=== PATIENT | male | born 1995 | race Native Hawaiian/Other Pacific Islander ===

== ENCOUNTER 2017-12-24 17:27 | Inpatient (IN) | payer OTHER, MEDICAID ==
--- NOTE | 2017-12-24 18:23 | RAD ---
HISTORY: PES COMPARISON: No prior. FINDINGS: LUNGS: The lungs are well inflated and clear. PLEURA: No significant pleural effusion identified, no pneumothorax apparent. CARDIOVASCULAR: Normal. OSSEOUS STRUCTURES: No significant abnormalities. VISUALIZED UPPER ABDOMEN: Normal. OTHER FINDINGS: There is a right ventriculoperitoneal shunt catheter. IMPRESSION: No active pulmonary disease.
[2017-12-24 18:28] LABS: BASO # 0.04 K/mm3 (0.0-2.0); BASO % 0.4 % (0.0-3.0); EOS # 0.1 (0.0-0.7); EOS % 1.1 % (1.5-5.0); GRAN # 7.32 (1.4-6.5); GRAN % 67.7 % (50.0-68.0); HEMOGLOBIN 17.4 g/dL (14.0-18.0); LYMPH # 2.6 (1.2-3.4); MEAN CELL VOLUME 87.3 fl (80.0-105.0); MEAN CORPUSCULAR HEMOGLOBIN 30.7 pg (25.0-35.0); MEAN CORPUSCULAR HGB CONC 35.2 g/dl (31.0-37.0); MEAN PLATELET VOLUME 11.4 fl (7.0-11.0); MONO # 0.7 (0.1-0.6); MONO % 6.8 % (1.0-6.0); RBC 5.67 10^6/uL (3.5-6.1); RED CELL DISTRIBUTION WIDTH 12.1 % (11.5-14.5); WHITE BLOOD COUNT 10.8 10^3/ul (4.5-11.0)
[2017-12-24 18:37] LABS: ACETAMINOPHEN < 10.0 ug/ml (10.0-20.0); SALICYLATE < 1 mg/dL (2.0-20.0)
[2017-12-24 18:39] LABS: ALB/GLOB RATIO 1.4 (1.1-1.8); ALBUMIN 4.9 g/dL (3.0-4.8); ALT/SGPT 39 U/L (7-56); AST/SGOT 32 U/L (17-59); BLOOD UREA NITROGEN 16 mg/dL (7-21); CALCIUM 10.6 mg/dL (8.4-10.5); GFR AFRICAN-AMERICAN > 60; GFR NON-AFRICAN AMERICAN > 60
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
[2017-12-24 20:19] LABS: URINE BILIRUBIN NEGATIVE (NEGATIVE); URINE BLOOD NEGATIVE (NEGATIVE); URINE GLUCOSE (UA) NEGATIVE (NEGATIVE); URINE LEUKOCYTE ESTERASE NEGATIVE Leu/uL (NEGATIVE); URINE PROTEIN NEGATIVE mg/dL (<30 mg/dL); URINE UROBILINOGEN 0.2 E.U./dL (<1 E.U./dL)
[2017-12-24 20:21] LABS: URINE APPEARANCE CLEAR (CLEAR); URINE COLOR LIGHT YELLOW (YELLOW)
[2017-12-24 20:35] LABS: BARBITURATES, UR NEGATIVE (NEGATIVE); BENZODIAZEPINES, UR NEGATIVE (NEGATIVE); OPIATES, UR NEGATIVE (NEGATIVE); PHENCYCLIDINE, UR NEGATIVE (NEGATIVE)
[2017-12-24 23:42] VITALS: RESP 20
--- NOTE | 2017-12-25 00:40 | PCM.BM ---
<Christopher Patterson - Last Filed: 12/25/17 00:36> Treatment Plan Problems - Problems identified on initial assessmt ALTERED THOUGHT PROCESS Date Initiated: 12/24/17 Time Initiated: 22:00 Assessment reference: NA Status: Active Priority: 1 INEFFECTIVE COPING Date Initiated: 12/24/17 Time Initiated: 22:00 Assessment reference: NA Status: Active Priority: 2 AGITATED BEHAVIOR Date Initiated: 12/24/17 Time Initiated: 22:00 Assessment reference: NA Status: Active Priority: 3 MEDICATION NON ADHERENCE Date Initiated: 12/24/17 Time Initiated: 22:00 Assessment reference: NA Status: Active Priority: 4 Treatment assets and liabiliti Patient Assests: adapts well, cooperative, educated, self-reliant, ADL independent, physically healthy, negotiates basic needs, cognitively intact Patient Liabilities: financial problems, poor support system, relationship conflicts, other - Milieu Protocol Maintain good personal hygiene: daily Encourage regular showers, every shift Remind patient to perform daily oral care, every shift Assist patient to perform ADL's Maintain personal safety: every shift Educate patient to report safety concerns to staff, every shift Monitor environment for contraband/sharps Medication safety: Monitor for expected outcome, potential side effects: every shift, Assess barriers to learning: every shift, Assess readiness for medication education: every shift Family Contact Family involvement: Family/SO is involved Family contact: Patient agrees to contact Discharge/Continuing Care - Education Needs Education Needs: Patient Medication, Patient Diagnosis/Disease Process, Patient Coping Skills, Patient Anger Management skills, Patient Placement options, Patient Community resources, Patient Health Practices/Safety, Patient Personal Hygiene/Grooming - Discharge Discharge Criteria: Tolerates medication w/o severe side effects, Free of paranoid thoughts, Free of agitation, Normal sleep pattern <Lisa Hirsch - Last Filed: 12/25/17 14:15> - Diagnosis (1) Unspecified psychosis not due to a substance or known physiological condition Status: Acute Interventions: 12/25/17 14:16 Psychoeducation supportive therapy Psychopharmacology/adjustment of medications as needed/ monitoring possible side effects Evaluate pt on daily basis Compliance with medications and follow up appointments Long acting medication if pt is noncompliant with pill form Suicide and homicide risk assessment and prevention, coping strategies, safety plan Relapse prevention Reduction of symptoms Improve functional status Possible assertive community treatment Cognitive behavioral therapy Family involvement Possible social skill training as outpatient <Kenia Heard Y - Last Filed: 12/25/17 15:23> Family Contact Family contact name: Zainab Kelly(mother) [phone] Family contacted how many times per week?: 2
[2017-12-25 08:22] LABS: GLUCOSE,FASTING 94 mg/dL (65-110); HDL CHOLESTEROL 51 mg/dL (29-60)
[2017-12-25 08:32] LABS: LDL CHOLESTEROL 73 mg/dL (0-129)
--- NOTE | 2017-12-25 09:11 | CT ---
PROCEDURE: CT HEAD WITHOUT CONTRAST. HISTORY: headache x 3 days COMPARISON: None available. TECHNIQUE: Axial computed tomography images were obtained through the head/brain without intravenous contrast. Radiation dose: Total exam DLP = 920 mGy-cm. This CT exam was performed using one or more of the following dose reduction techniques: Automated exposure control, adjustment of the mA and/or kV according to patient size, and/or use of iterative reconstruction technique. FINDINGS: HEMORRHAGE: No intracranial hemorrhage. BRAIN: No mass effect or edema. No atrophy or chronic microvascular ischemic changes. There is calcification of the falx and tentorium VENTRICLES: Unremarkable. No hydrocephalus. CALVARIUM: There is a right parietal shunt catheter extending 11 mm into the right parietal lobe. A shunt tract can be seen extending to the right lateral ventricle. This is best seen on sagittal image 35 series 602 PARANASAL SINUSES: Unremarkable as visualized. No significant inflammatory changes. MASTOID AIR CELLS: Unremarkable as visualized. No inflammatory changes. OTHER FINDINGS: The report concurs with the preliminary [facility] report IMPRESSION: No acute intracranial findings
--- NOTE | 2017-12-25 11:26 | CARD ---
APPROVED REPORT EKG Measurement Heart [id number] <Conclusion> Normal sinus rhythm Normal ECG
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
--- NOTE | 2017-12-26 01:16 | CON ---
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 PAST MEDICAL HISTORY: As above. ALLERGIES: NO KNOWN DRUG ALLERGY. REVIEW OF SYSTEMS: Ten-point review of system was negative except paranoid. PHYSICAL EXAMINATION: VITAL SIGNS: Blood pressure 121/66. HEENT: Normocephalic, atraumatic. NECK: Supple. NEUROLOGIC: Alert, awake, oriented x3. No aphasia. Cranial nerves II through XII were tested. Pupils reactive. EOM intact. Visual rose full. No facial asymmetry. Tongue midline. Motor examination, moves all the extremities equally. Tone normal. Deep tendon reflexes 1+. Both plantars are downgoing. Sensory appears intact. Cerebellar and gait, normal. DIAGNOSTIC DATA: CAT scan of the head, which did not show any pathology. LABORATORY DATA: WBC 10.8, hemoglobin 17.4, hematocrit 49.5 and platelet 172. Sodium 144, potassium 3.6, chloride 100, CO2 of 13, glucose 85, BUN 16, creatinine 0.9. IMPRESSION: 1. Status post surgery, status post craniotomy partial with ventriculoperitoneal shunt. 2. Anxiety. PLAN: Continue present management. We will follow up. Fady Lawson MD
--- NOTE | 2017-12-26 13:11 | CON ---
DATE: MEDICAL CONSULT HISTORY OF PRESENT ILLNESS: A 22-year-old male admitted through [facility] to the Psychiatric Unit at [facility] under the care of Dr. Gary Chapman. Patient states that he has been feeling a bit tense, anxious and paranoid. He states that he has a history of medulloblastoma, status post craniotomy and [employer]IFIC[employer] INTELLIGENCE SPECIALIST shunt in 07/1996. He has a history of depression and anxiety. States that he had been off his medications. He goes to the school as a student. PAST MEDICAL HISTORY: He denies any history of diabetes, hypertension, hepatitis, pulmonary or lung disease, cardiac disease, GI disease, any sort of rheumatologic disorders. He states that he has not seen a neurologist for a number of years. He was being followed at [facility] for over 10 years and has been cleared by them. He denies any symptomatology related to that at this time. ALLERGIES: HE HAS NO KNOWN ALLERGIES. SOCIAL HISTORY: He denies any use of drugs, smoking or alcohol. MEDICATIONS: His active medications are Ambien, Ativan, Cogentin, Haldol and Seroquel. REVIEW OF SYSTEMS: Multiple systems are noted. There is a scar on his anterior left chest area secondary to surgery for his shunt. PHYSICAL EXAMINATION GENERAL: He is alert and oriented x3. VITAL SIGNS: Show a temperature of 97.9, his blood pressure is 125/74, respiratory rate is 20, oxygen saturation is reported 99% on room air. LUNGS: Clear. HEART: Is in S1, S2 rhythm. ABDOMEN: Soft with positive bowel sounds. EXTREMITIES: Show no evidence of rash or edema. DIAGNOSTIC DATA: His EKG is reported as showing a normal sinus rhythm. His chest x-ray is showing no evidence of active pulmonary disease. His CAT scan of his head have been reported as no acute intracranial findings. There is a right parietal shunt catheter in the right parietal lobe extending into the right lateral ventricle. Calcifications of the falx and tentorium are reported. LABORATORY DATA: Shows a sodium of 144, potassium 3.6, chloride 100, BUN 16, creatinine 0.9. His calcium is 10.6. Liver function tests are normal. Total protein is 8.4, albumin is 4.9. His TSH is 1.99. CBC showed a WBC of 10.8, RBC of 5.67, hemoglobin 17.4, hematocrit 49.5, platelet count of 172,000. Urinalysis is negative. Toxicology screen: Salicylate less than 1, alcohol less than 10. Serology, his RPR is nonreactive. ASSESSMENT AND PLAN: Patient will be seen by neurologist and followed by Psychiatry with the history of medulloblastoma, anxiety and depression. Thank you for this interesting consult. We will follow the patient and make recommendations pending input from the other consultants and studies. Maryan Pearson MD
--- NOTE | 2017-12-26 13:32 | PN ---
DATE: SUBJECTIVE: A 22-year-old male on the Psychiatry Unit under the care of Dr. Gary Chapman. Nursing staff relates that there were no particular problems during the night. PHYSICAL EXAMINATION VITAL SIGNS: His temperature is 97.6, his pulse is 80, his blood pressure was 132/70, respiratory rate was 20. GENERAL: He is alert. LUNGS: Clear. HEART: S1 and S2 rhythm. ABDOMEN: Soft. EXTREMITIES: No evidence of edema. ASSESSMENT AND PLAN: The patient was seen by Neurology and he has been followed by Psychiatry. Repeat calcium has been requested and current medications consists of Ambien, Ativan, Cogentin, Haldol and Seroquel. He has a past medical history of medulla glioblastoma with a shunt and history of anxiety and depression. We will continue to monitor the patient, follow with Psychiatry. Maryan Pearson MD
--- NOTE | 2017-12-26 17:46 | PCM.PYCHPN ---
Psychiatric Progress Note - Psychiatric Progress Note Patient Chief Complaint: Depression, anxiety, disorganized and bizarre thinking and behavior Problems Identified/Issues Discussed: Patient has become increasingly disorganized. Last night, the first night of his admission, he had been wandering, and still wanders into other patient's rooms and taking their properties. Has poor insight. Patient had the last week been evaluated at [facility] emergency room for chest pain and shortness of breath. The was deemed psychiatrically able to leave the hospital but a neurologic workup as far as can be determined was not initiated at that time. Patient has a prior history of brain tumor and shunt placement Medical Problems: As noted above Diagnostic Results: Laboratory Results - last 72 hr 12/24/17 12/24/17 12/24/17 18:17 18:17 18:17 WBC 10.8 RBC 5.67 Hgb 17.4 Hct 49.5 MCV 87.3 MCH 30.7 MCHC 35.2 RDW 12.1 Plt Count 172 MPV 11.4 H Gran % 67.7 Lymph % (Auto) 24.0 [place] % (Auto) 6.8 H Eos % (Auto) 1.1 L Baso % (Auto) 0.4 Gran # 7.32 H Lymph # (Auto) 2.6 [place]ay # (Auto) 0.7 H Eos # (Auto) 0.1 Baso # (Auto) 0.04 Sodium 144 Potassium 3.6 Chloride 100 Carbon Dioxide 30 Anion Gap 17 BUN 16 Creatinine 0.9 Est GFR ( Amer) > 60 Est GFR (Non-Af Amer) > 60 Random Glucose 85 Fasting Glucose Calcium 10.6 H Total Bilirubin 0.8 AST 32 ALT 39 Alkaline Phosphatase 81 Total Protein 8.4 H Albumin 4.9 H Globulin 3.5 Albumin/Globulin Ratio 1.4 Triglycerides Cholesterol LDL Cholesterol Direct HDL Cholesterol TSH 3rd Generation Urine Color Urine Appearance Urine pH Ur Specific [place] Urine Protein Urine Glucose (UA) Urine Ketones Urine Blood Urine Nitrate Urine Bilirubin Urine Urobilinogen Ur Leukocyte Esterase Salicylates < 1 L Urine Opiates Screen Urine Methadone Screen Acetaminophen < 10.0 L Ur Barbiturates Screen Ur Phencyclidine Scrn Ur Amphetamines Screen U Benzodiazepines Scrn U Oth Cocaine Metabols U Cannabinoids Screen Alcohol, Quantitative RPR 12/24/17 12/24/17 12/24/17 18:17 19:54 19:54 WBC RBC Hgb Hct MCV MCH MCHC RDW Plt Count MPV Gran % Lymph % (Auto) [place] % (Auto) Eos % (Auto) Baso % (Auto) Gran # Lymph # (Auto) [place] # (Auto) Eos # (Auto) Baso # (Auto) Sodium Potassium Chloride Carbon Dioxide Anion Gap BUN Creatinine Est GFR ( Amer) Est GFR (Non-Af Amer) Random Glucose Fasting Glucose Calcium Total Bilirubin AST ALT Alkaline Phosphatase Total Protein Albumin Globulin Albumin/Globulin Ratio Triglycerides Cholesterol LDL Cholesterol Direct HDL Cholesterol TSH 3rd Generation Urine Color Light yellow Urine Appearance Clear Urine pH 6.0 Ur Specific [place] 1.010 Urine Protein Negative Urine Glucose (UA) Negative Urine Ketones Negative Urine Blood Negative Urine Nitrate Negative Urine Bilirubin Negative Urine Urobilinogen 0.2 Ur Leukocyte Esterase Negative Salicylates Urine Opiates Screen Negative Urine Methadone Screen Negative Acetaminophen Ur Barbiturates Screen Negative Ur Phencyclidine Scrn Negative Ur Amphetamines Screen Negative U Benzodiazepines Scrn Negative U Oth Cocaine Metabols Negative U Cannabinoids Screen Negative Alcohol, Quantitative < 10 RPR 12/25/17 12/25/17 12/25/17 07:30 07:30 07:30 WBC RBC Hgb Hct MCV MCH MCHC RDW Plt Count MPV Gran % Lymph % (Auto) [place] % (Auto) Eos % (Auto) Baso % (Auto) Gran # Lymph # (Auto) [place] # (Auto) Eos # (Auto) Baso # (Auto) Sodium Potassium Chloride Carbon Dioxide Anion Gap BUN Creatinine Est GFR ( Amer) Est GFR (Non-Af Amer) Random Glucose Fasting Glucose 94 Calcium Total Bilirubin AST ALT Alkaline Phosphatase Total Protein Albumin Globulin Albumin/Globulin Ratio Triglycerides 93 Cholesterol 147 LDL Cholesterol Direct 73 HDL Cholesterol 51 TSH 3rd Generation 1.99 Urine Color Urine Appearance Urine pH Ur Specific [place] Urine Protein Urine Glucose (UA) Urine Ketones Urine Blood Urine Nitrate Urine Bilirubin Urine Urobilinogen Ur Leukocyte Esterase Salicylates Urine Opiates Screen Urine Methadone Screen Acetaminophen Ur Barbiturates Screen Ur Phencyclidine Scrn Ur Amphetamines Screen U Benzodiazepines Scrn U Oth Cocaine Metabols U Cannabinoids Screen Alcohol, Quantitative RPR Nonreactive 12/26/17 09:50 WBC RBC Hgb Hct MCV MCH MCHC RDW Plt Count MPV Gran % Lymph % (Auto) [place] % (Auto) Eos % (Auto) Baso % (Auto) Gran # Lymph # (Auto) [place] # (Auto) Eos # (Auto) Baso # (Auto) Sodium Potassium Chloride Carbon Dioxide Anion Gap BUN Creatinine Est GFR ( Amer) Est GFR (Non-Af Amer) Random Glucose Fasting Glucose Calcium 10.3 Total Bilirubin AST ALT Alkaline Phosphatase Total Protein Albumin Globulin Albumin/Globulin Ratio Triglycerides Cholesterol LDL Cholesterol Direct HDL Cholesterol TSH 3rd Generation Urine Color Urine Appearance Urine pH Ur Specific [place] Urine Protein Urine Glucose (UA) Urine Ketones Urine Blood Urine Nitrate Urine Bilirubin Urine Urobilinogen Ur Leukocyte Esterase Salicylates Urine Opiates Screen Urine Methadone Screen Acetaminophen Ur Barbiturates Screen Ur Phencyclidine Scrn Ur Amphetamines Screen U Benzodiazepines Scrn U Oth Cocaine Metabols U Cannabinoids Screen Alcohol, Quantitative RPR DSM 5 Symptoms Update: Remains emotionally labile, bizarre and affect, wandering, taking other people' s properties, some elements of paranoia. Medication Change: Yes (Have increased Seroquel to 400 mg daily) Medical Record Reviewed: Yes Consults ordered or reviewed: Reviewed neurology and internal medicine consults Mental Status Examination - Cognitive Function Orientation: Person, Place Memory: Intact Attention: WNL Concentration: Poor Association: WNL Fund of Knowledge: WNL Decription of patient's judgement and insights: Minimal - Mood Mood: Other (Labile) - Affect Affect: Flat, Other (Labile) - Speech Speech: Appropriate - Formal Thought Process Formal Thought Process: Hallucinations, Delusions, Paranoia, Loosening of associations, Circumstantial - Suicidal Ideation Suicidal Ideation: No - Homicidal Ideation Homicidal Ideation: No Goal/Treatment Plan - Goal/Treatment Plan Need for Continued Stay: Remain at risks for inpatient hospitalization, Severe depression anxiety, Severe functional impairment Progress Toward Problem(s) and Goals/Treatment Plan: Not yet stable. The remainder in. Of medication adjustment and neurologic evaluation - Smoking Cessation Smoking Cessation Initiated: No Reason for not providing: Nonsmoker
--- NOTE | 2017-12-27 15:53 | EEG ---
DATE: 12/27/2017 ELECTROENCEPHALOGRAM CONDITION OF THE RECORDING OF THIS EEG: Drowsy. DIAGNOSIS: Change in mental status. MEDICATIONS: Reviewed by nurse's reconciliation sheet. INTERPRETATION: This is a 16-channel international recording. Background activity of this tracing was composed of 8 cycles per second. There was an increased amount of beta activity of 16 to 20 cycles per second seen in this recording. There was a small amount of theta activity of 5 to 7 cycles per second seen in this tracing. Drowsiness was characterized by mixed beta and theta activities. Sleep was characterized by vertex transient waves, sleep spindles and bilateral slowing. Photic stimulation showed no changes in the tracing. No paroxysmal activity was noted in this recording. CONCLUSION: This is a normal drowsy electroencephalogram. No evidence of any epileptiform activity. Thank you for this. Nhan Lawson MD
--- NOTE | 2017-12-27 16:00 | PCM.PYCHPN ---
Psychiatric Progress Note - Psychiatric Progress Note Patient seen today, length of contact: 25 Patient Chief Complaint: Depression, anxiety, disorganized and bizarre thinking and behavior Problems Identified/Issues Discussed: Patient has become increasingly disorganized. Last night, the first night of his admission, he had been wandering, and still wanders into other patient's rooms and taking their properties. Has poor insight. Patient had the last week been evaluated at [facility] emergency room for chest pain and shortness of breath. The was deemed psychiatrically able to leave the hospital but a neurologic workup as far as can be determined was not initiated at that time. Patient has a prior history of brain tumor and shunt placement Medical Problems: As noted above Diagnostic Results: Laboratory Results - last 72 hr 12/24/17 12/24/17 12/24/17 18:17 18:17 18:17 WBC 10.8 RBC 5.67 Hgb 17.4 Hct 49.5 MCV 87.3 MCH 30.7 MCHC 35.2 RDW 12.1 Plt Count 172 MPV 11.4 H Gran % 67.7 Lymph % (Auto) 24.0 [place] % (Auto) 6.8 H Eos % (Auto) 1.1 L Baso % (Auto) 0.4 Gran # 7.32 H Lymph # (Auto) 2.6 [place] # (Auto) 0.7 H Eos # (Auto) 0.1 Baso # (Auto) 0.04 Sodium 144 Potassium 3.6 Chloride 100 Carbon Dioxide 30 Anion Gap 17 BUN 16 Creatinine 0.9 Est GFR ( Amer) > 60 Est GFR (Non-Af Amer) > 60 Random Glucose 85 Fasting Glucose Calcium 10.6 H Total Bilirubin 0.8 AST 32 ALT 39 Alkaline Phosphatase 81 Total Protein 8.4 H Albumin 4.9 H Globulin 3.5 Albumin/Globulin Ratio 1.4 Triglycerides Cholesterol LDL Cholesterol Direct HDL Cholesterol TSH 3rd Generation Urine Color Urine Appearance Urine pH Ur Specific [place] Urine Protein Urine Glucose (UA) Urine Ketones Urine Blood Urine Nitrate Urine Bilirubin Urine Urobilinogen Ur Leukocyte Esterase Salicylates < 1 L Urine Opiates Screen Urine Methadone Screen Acetaminophen < 10.0 L Ur Barbiturates Screen Ur Phencyclidine Scrn Ur Amphetamines Screen U Benzodiazepines Scrn U Oth Cocaine Metabols U Cannabinoids Screen Alcohol, Quantitative RPR 12/24/17 12/24/17 12/24/17 18:17 19:54 19:54 WBC RBC Hgb Hct MCV MCH MCHC RDW Plt Count MPV Gran % Lymph % (Auto) [place] % (Auto) Eos % (Auto) Baso % (Auto) Gran # Lymph # (Auto) [place] # (Auto) Eos # (Auto) Baso # (Auto) Sodium Potassium Chloride Carbon Dioxide Anion Gap BUN Creatinine Est GFR ( Amer) Est GFR (Non-Af Amer) Random Glucose Fasting Glucose Calcium Total Bilirubin AST ALT Alkaline Phosphatase Total Protein Albumin Globulin Albumin/Globulin Ratio Triglycerides Cholesterol LDL Cholesterol Direct HDL Cholesterol TSH 3rd Generation Urine Color Light yellow Urine Appearance Clear Urine pH 6.0 Ur Specific [place] 1.010 Urine Protein Negative Urine Glucose (UA) Negative Urine Ketones Negative Urine Blood Negative Urine Nitrate Negative Urine Bilirubin Negative Urine Urobilinogen 0.2 Ur Leukocyte Esterase Negative Salicylates Urine Opiates Screen Negative Urine Methadone Screen Negative Acetaminophen Ur Barbiturates Screen Negative Ur Phencyclidine Scrn Negative Ur Amphetamines Screen Negative U Benzodiazepines Scrn Negative U Oth Cocaine Metabols Negative U Cannabinoids Screen Negative Alcohol, Quantitative < 10 RPR 12/25/17 12/25/17 12/25/17 07:30 07:30 07:30 WBC RBC Hgb Hct MCV MCH MCHC RDW Plt Count MPV Gran % Lymph % (Auto) [place] % (Auto) Eos % (Auto) Baso % (Auto) Gran # Lymph # (Auto) [place] # (Auto) Eos # (Auto) Baso # (Auto) Sodium Potassium Chloride Carbon Dioxide Anion Gap BUN Creatinine Est GFR ( Amer) Est GFR (Non-Af Amer) Random Glucose Fasting Glucose 94 Calcium Total Bilirubin AST ALT Alkaline Phosphatase Total Protein Albumin Globulin Albumin/Globulin Ratio Triglycerides 93 Cholesterol 147 LDL Cholesterol Direct 73 HDL Cholesterol 51 TSH 3rd Generation 1.99 Urine Color Urine Appearance Urine pH Ur Specific [place] Urine Protein Urine Glucose (UA) Urine Ketones Urine Blood Urine Nitrate Urine Bilirubin Urine Urobilinogen Ur Leukocyte Esterase Salicylates Urine Opiates Screen Urine Methadone Screen Acetaminophen Ur Barbiturates Screen Ur Phencyclidine Scrn Ur Amphetamines Screen U Benzodiazepines Scrn U Oth Cocaine Metabols U Cannabinoids Screen Alcohol, Quantitative RPR Nonreactive 12/26/17 09:50 WBC RBC Hgb Hct MCV MCH MCHC RDW Plt Count MPV Gran % Lymph % (Auto) [place] % (Auto) Eos % (Auto) Baso % (Auto) Gran # Lymph # (Auto) [place] # (Auto) Eos # (Auto) Baso # (Auto) Sodium Potassium Chloride Carbon Dioxide Anion Gap BUN Creatinine Est GFR ( Amer) Est GFR (Non-Af Amer) Random Glucose Fasting Glucose Calcium 10.3 Total Bilirubin AST ALT Alkaline Phosphatase Total Protein Albumin Globulin Albumin/Globulin Ratio Triglycerides Cholesterol LDL Cholesterol Direct HDL Cholesterol TSH 3rd Generation Urine Color Urine Appearance Urine pH Ur Specific [place] Urine Protein Urine Glucose (UA) Urine Ketones Urine Blood Urine Nitrate Urine Bilirubin Urine Urobilinogen Ur Leukocyte Esterase Salicylates Urine Opiates Screen Urine Methadone Screen Acetaminophen Ur Barbiturates Screen Ur Phencyclidine Scrn Ur Amphetamines Screen U Benzodiazepines Scrn U Oth Cocaine Metabols U Cannabinoids Screen Alcohol, Quantitative RPR DSM 5 Symptoms Update: Met with patient in presence of social insurance adviser Kenia SZYMANSKI DIRECTOR OF BUSINESS CONTINUITY Case discussed with nursing. Patient presently is calm. Revised little insight into his recent aberrant/presumably psychotic behavior in which he was wandering from room to room. He is able to identify that he is paranoid yesterday but not presently. Presently denies auditory or visual hallucinations. Patient is anxious to go home. Seems to be minimizing his recent bizarre behavior. While patient is improving he still appears monitoring. I have reviewed his situation with neurology who finds though the effects on either visual or electroencephalographic imaging. This thus appears to be a purely psychiatric/psychotic possibly bipolar presentation. Medication Change: Yes (Have increased Seroquel to 400 mg daily) Medical Record Reviewed: Yes Mental Status Examination - Cognitive Function Orientation: Person, Place Memory: Intact Attention: WNL Concentration: Poor Association: WNL Fund of Knowledge: WNL Decription of patient's judgement and insights: Minimal - Mood Mood: Other (Labile) - Affect Affect: Flat, Other (Labile) - Speech Speech: Appropriate - Formal Thought Process Formal Thought Process: Hallucinations, Delusions, Paranoia, Loosening of associations, Circumstantial - Suicidal Ideation Suicidal Ideation: No - Homicidal Ideation Homicidal Ideation: No Goal/Treatment Plan - Goal/Treatment Plan Need for Continued Stay: Remain at risks for inpatient hospitalization, Severe depression anxiety, Severe functional impairment Progress Toward Problem(s) and Goals/Treatment Plan: Not yet stable. The remainder in. Of medication adjustment and neurologic evaluation
--- NOTE | 2017-12-28 09:17 | PCM.PYCHPN ---
Psychiatric Progress Note - Psychiatric Progress Note Patient seen today, length of contact: 25 Patient Chief Complaint: "feeling better and thoughts are clearing" Problems Identified/Issues Discussed: I reviewed assessment and recent notes. Patient is 22 years old male with reported history of bipolar disorder, history of at least 1 psychiatric admission in [place] who was brought in by family for evaluation of bizarre, agitated, confusion and paranoid behavior. Patient was initially quite disorganized on the unit. Presented as paranoid, delusional and illogical. He required a lot of redirection because he was going to different rooms and taking other patient's possessions. Patient was also acutely hallucinating, he believed he cut himself in the shower and there was not evidence of any wounds. There has been some improvement. He has been calmer and a little less disruptive though has been minimizing his symptoms with providers and staff. Patient was anxious and restless again last night. Staff observed him pacing and trying to open doors. He told staff "it's my protective instinct". Patient did accept Ativan when offered to him. Patient was calm, cooperative and oriented x3 when I interviewed him in the [place]. Grooming was intact. Focus was consistent and fair. He seems to be expressing himself better today when compared to prior notes. Patient reports that he is "feeling better and thoughts are clearing". Denies paranoia or hallucinations. Affect is odd, guarded and flat. He denies any side effects, new discomfort or pain. Regarding his pacing on the unit, he indicates that walking calms him down. There were no other behavioral issues thus far. Insight is still poor. Of note Dr Chapman reviewed his situation with neurology. Patients behavior appears to be purely psychiatric/psychotic possibly bipolar presentation Diagnostic Results: psychosis NOS r/o bipolar disorder as per h/o r/o psychosis due to a [facility] [place]ication Change: Yes (Have increased Seroquel to 400 mg daily) Medical Record Reviewed: Yes Mental Status Examination - Cognitive Function Orientation: Person, Place Memory: Intact Attention: WNL Concentration: Poor Association: WNL Fund of Knowledge: WNL - Mood Mood: Other ( "feeling better and thoughts are clearing") - Affect Affect: Flat, Other (Labile and oddly related) - Speech Speech: Appropriate - Formal Thought Process Formal Thought Process: Hallucinations (denies), Delusions (none elicited at this time), Paranoia (guarded during interview, minimizing), Loosening of associations, Circumstantial - Suicidal Ideation Suicidal Ideation: No - Homicidal Ideation Homicidal Ideation: No Goal/Treatment Plan - Goal/Treatment Plan Need for Continued Stay: Remain at risks for inpatient hospitalization, Severe depression anxiety, Severe functional impairment Progress Toward Problem(s) and Goals/Treatment Plan: Group, milieu and supportive tx No new weekend labs thus far Vitals reviewed and noted below Selected Entries 12/27/17 12/27/17 07:02 16:00 Temperature 97.3 F L Pulse Rate 76 86 Respiratory 20 Rate Blood Pressure 131/89 124/82 CONTINUE: Seroquel 200mg po [facility] Cogentin 0.5 mg po q6 prn Ambien 5 mg po HS for insomnia
--- NOTE | 2017-12-28 11:48 | CT ---
PROCEDURE: CT HEAD WITHOUT CONTRAST. HISTORY: R/O possble trauma COMPARISON: Unenhanced head CT 12/24/2017. TECHNIQUE: Axial computed tomography images were obtained through the head/brain without intravenous contrast. Radiation dose: Total exam DLP = 954.68 mGy-cm. This CT exam was performed using one or more of the following dose reduction techniques: Automated exposure control, adjustment of the mA and/or kV according to patient size, and/or use of iterative reconstruction technique. FINDINGS: HEMORRHAGE: No intracranial hemorrhage. BRAIN: Stable pattern of dural calcifications is appreciated primarily at the mid to upper extra-axial spaces and is seen most prominently at the tentorium and falx. No interval intracranial hemorrhage or mass is identified. Ventricular shunt tubing is again appreciated at the right occipital lobe with limited encephalomalacia again seen anterior to its tip likely from prior intraventricular position. The bilateral lateral and 3rd ventricles are normal in volume with the 4th ventricle dilated once again. Patient status post partial suboccipital craniectomy and stump of postoperative changes seen at the region of the upper vermis and upper right cerebellum likely causing ex vacuo expansion of the 4th ventricle rather than potential mildly trapped ventricle. CALVARIUM: Unremarkable. PARANASAL SINUSES: Unremarkable as visualized. No significant inflammatory changes. MASTOID AIR CELLS: Unremarkable as visualized. No inflammatory changes. OTHER FINDINGS: None. IMPRESSION: No interval calvarial fracture or intracranial hemorrhage appreciable. Stable dural calcifications as discussed above as well as right ventricular shunt catheter placement terminating in the right parietal lobe. Partial suboccipital craniectomy again evident with postoperative changes related to mild ex vacuo expansion of 4th ventricle.
--- NOTE | 2017-12-28 19:41 | PN ---
DATE: SUBJECTIVE: A 22-year-old male who is sitting in the bay room on the psych unit. The patient states that he feels a little sleepy, and the staff states that he recently got his Seroquel. Also, states that he appeared to be a little unsteady in his gait, and he said he bumped his head on the door and staff relates that it was mild. He denies any headache or pain at this time. PHYSICAL EXAMINATION GENERAL: He is alert and oriented x3. VITAL SIGNS: Blood pressure is 117/74, his respiratory rate is 20, his temperature is 98.1, his pulse is 87. LUNGS: Clear. HEART: S1 and S2 rhythm. ABDOMEN: Soft with positive bowel sounds. EXTREMITIES: Show no evidence of edema. ASSESSMENT AND PLAN: I discussed this with the staff as well as with the neurologist, Dr. Lawson. A CAT scan of the head without contrast has been requested. Also it has been requested that the patient be monitored one-to-one his medications and his current status. This was also discussed with Neurology. The patient is being followed on the Psychiatry Unit for behavior disorder. He has a history of medulloblastoma with ventricular shunt. Maryan Pearson MD
[2017-12-29 06:44] VITALS: O2SAT 98
--- NOTE | 2017-12-29 09:35 | PCM.PYCHPN ---
Psychiatric Progress Note - Psychiatric Progress Note Patient seen today, length of contact: 25 min Patient Chief Complaint: "depressed and anxious" Problems Identified/Issues Discussed: I reviewed assessment and recent notes. Patient is 22 years old male with reported history of bipolar disorder, history of at least 1 psychiatric admission in [place] who was brought in by family for evaluation of bizarre, agitated, confusion and paranoid behavior. Patient was initially quite disorganized on the unit. Presented as paranoid, delusional and illogical. He required a lot of redirection because he was going to different rooms and taking other patient's possessions. Patient was also acutely hallucinating, he believed he cut himself in the shower and there was not evidence of any wounds. There has been inconsistent improvement. Patient can demonstrate periods of clarity and calm behavior however hallucinations and paranoia persist and can cause patient to become disruptive and unpredictable. To review: Patient was anxious and restless on Saturday night. Staff observed him pacing and trying to open doors. He told staff "it's my protective instinct". Patient did accept Ativan when offered to him. He was fairly calm during my interview on Saturday morning. Was not observed to be hallucinating at the time but he was minimizing symptoms. Later in the morning, Dr. Pearson observed patient wobbling on the unit and accidentally bang his head on the wall. CT scan without contrast stat was done and returned normal. Neuro checks have been within normal limits. This provider decreased patient's Seroquel dose to 50 mg am and 100 mg HS. I also changed Ambien to prn. Patient was put on 1:1 observation as ordered by Dr. Pearson. Pt was also seen and eval by neurologist Dr. Lawson, no new orders given. Patient was emotional yesterday, nursing felt patient was embarrassed by 1:1 when he used the bathroom and this is reasonable. However he was argumentative and resistant with staff requests last night. Patient was acutely paranoid and delusional. He refused vitals and tried to unlock fire exit doors. He also tried to barricade himself in the nurses station. Angélica Bhagat was called and patient was medicated with Geodon 10 mg IM and Cogentin 1 mg IM. I met with patient this morning and patient was superficially cooperative and less engaged with me. He seemed more disoriented and preoccupied than yesterday. Thought process was scattered. Patient was upset about Code Bhagat yesterday and blamed the staff. He is unwilling or unable to discuss his symptoms. He still denies hallucinations and it is very difficult for him to coherently discuss the event. Patient indicates that he is anxious and depressed about this hospitalization. Denies pain, discomfort or further unsteadiness. Affect remains odd, guarded and flat. Insight is still poor and behavior is unpredictable. Diagnostic Results: psychosis NOS r/o bipolar disorder as per h/o r/o psychosis due to a [facility] Medication Change: No ( Seroquel was decreased to 50 mg AM and 100 mg HS due to pt's unsteadines) Medical Record Reviewed: Yes Mental Status Examination - Cognitive Function Orientation: Person, Place Memory: Intact Attention: WNL Concentration: Poor Association: WNL Fund of Knowledge: WNL - Mood Mood: Other ( "feeling better and thoughts are clearing") - Affect Affect: Flat, Other (Labile and oddly related) - Speech Speech: Appropriate - Formal Thought Process Formal Thought Process: Hallucinations (denies), Delusions (none elicited at this time), Paranoia (guarded during interview, minimizing), Loosening of associations, Circumstantial - Suicidal Ideation Suicidal Ideation: No - Homicidal Ideation Homicidal Ideation: No Goal/Treatment Plan - Goal/Treatment Plan Need for Continued Stay: Remain at risks for inpatient hospitalization, Severe depression anxiety, Severe functional impairment Progress Toward Problem(s) and Goals/Treatment Plan: Group, milieu and supportive tx No new weekend labs Appreciate f/u by Dr. Pearson and Dr. Lawson on 12/28/17 Vitals reviewed and noted below 12/29/17 06:43 Temperature 97.8 F Pulse Rate 88 Respiratory 20 Rate Blood Pressure 126/79 CONTINUE: Seroquel was decreased to 50 mg AM and 100mg po HS due to patient's unsteadiness and resultant head injury on the unit on Saturday. Of note, patient refused Seroquel on Saturday night and accept AM dose on Saturday. Titrate slowly for symptoms Cogentin 0.5 mg po q6 prn Ambien 5 mg po HS prn for insomnia Continue with prns for agitation
--- NOTE | 2017-12-29 14:55 | PN ---
DATE: SUBJECTIVE: This is a 22-year-old male on the Psychiatric unit. Events from last night discussed with the staff and Psychiatric progress note of Ms. Samano reviewed. PHYSICAL EXAMINATION VITAL SIGNS: The patient's temperature this morning is 97.8, his pulse is 88, his blood pressure is 126/79, his oxygen saturation is 98% on room air. GENERAL: He is sitting in the day room. He denies any specific complaints at this time. HEART: Regular. LUNGS: Clear. ABDOMEN: Benign. DATA: CAT scan of his head reported as being no acute findings. He was seen by Neurology yesterday with no new orders as per the staff. The patient is being followed by the Psychiatric Unit, placed on a one-to-one because of his behavior pattern. We will continue therapy as per the psychiatrist. Maryan Pearson MD
--- NOTE | 2017-12-30 07:59 | PN ---
DATE: 12/27/2017 SUBJECTIVE: A 22-year-old male on the Psychiatry Unit under the care of Dr. Gary Chapman. PHYSICAL EXAMINATION VITAL SIGNS: His temperature is 97.3, his pulse is 76, his blood pressure is 131/89, respiratory rate is 20. GENERAL: States that he is feeling better since coming in. LUNGS: Clear. HEART: S1 and S2 rhythm. ABDOMEN: Soft with positive bowel sounds. EXTREMITIES: Show edema. LABORATORY DATA: Repeat serum calcium is 10.3. His TSH level is 1.99. He had a negative RPR. The patient is being seen by Neurology with a history of medulloblastoma more than 10 years ago. An EEG has been ordered and is pending. Neurology is to evaluate the patient as Psychiatry has concerns about his behavior and wants to exclude the possibility that there are no neurological issues going on. He continues on his Ambien, Ativan, Cogentin, Haldol and Seroquel. We will continue to monitor the patient at this time and to follow. Maryan Pearson MD
--- NOTE | 2017-12-30 15:40 | PN ---
DATE: SUBJECTIVE: A 22-year-old male on the Psychiatry Unit, being followed by the psychiatry staff and by Dr. Gary Chapman. PHYSICAL EXAMINATION: VITAL SIGNS: This morning reported temperature 97.9, his pulse was 80, his blood pressure was 129/80, respiratory rate was 20. GENERAL: He is alert and oriented x3. He offers no specific complaints at this time. LUNGS: Clear. HEART: S1 and S2 rhythm. ABDOMEN: Soft with positive bowel sounds. ASSESSMENT AND PLAN: The patient is receiving Ativan, Ambien, Cogentin, Haldol, and Seroquel. He is being followed for a behavior disorder, history of bipolar disorder. He also has a medical history of medulloblastoma more than 10 years ago, surgery with a shunt. He is being followed by Neurology as well. He had an EEG performed, which was reported as a normal drowsy EEG. No evidence of epileptiform activity. Continue current care as per Psychiatry. Thank you for allowing me to participate in the care of this patient. Maryan Pearson MD
--- NOTE | 2017-12-30 18:06 | PCM.PYCHPN ---
Psychiatric Progress Note - Psychiatric Progress Note Patient seen today, length of contact: 25 min Patient Chief Complaint: Depression, anxiety, disorganized and bizarre thinking and behavior Problems Identified/Issues Discussed: Patient has become increasingly disorganized. Last night, the first night of his admission, he had been wandering, and still wanders into other patient's rooms and taking their properties. Has poor insight. Patient had the last week been evaluated at [facility] emergency room for chest pain and shortness of breath. The was deemed psychiatrically able to leave the hospital but a neurologic workup as far as can be determined was not initiated at that time. Patient has a prior history of brain tumor and shunt placement On December 30 met with staff mother and the patient. Had also will review case with nursing, social work, and that Dr. Pearson. Thus apprised .. In sum patient presently lethargic and looked drugged. Still has paranoid ideation and poor insight. Reviewed some of his bizarre and problematic behaviors over the past weekend and calling a paranoid agitated outbursts, locking himself in the nurse's station, hitting his head required a CAT scan ( negative). Mother noted to be insightful, concerned and a potential ally Period where I have opted to start patient on less sedating antipsychoticGeodon oand we will stop the more sedating Seroquel. Have counseled patient that he, unlike his perception, is not ready for discharge. f events over past weekend Medical Problems: As noted above Diagnostic Results: Laboratory Results - last 72 hr 12/24/17 12/24/17 12/24/17 18:17 18:17 18:17 WBC 10.8 RBC 5.67 Hgb 17.4 Hct 49.5 MCV 87.3 MCH 30.7 MCHC 35.2 RDW 12.1 Plt Count 172 MPV 11.4 H Gran % 67.7 Lymph % (Auto) 24.0 Garden % (Auto) 6.8 H Eos % (Auto) 1.1 L Baso % (Auto) 0.4 Gran # 7.32 H Lymph # (Auto) 2.6 Garden # (Auto) 0.7 H Eos # (Auto) 0.1 Baso # (Auto) 0.04 Sodium 144 Potassium 3.6 Chloride 100 Carbon Dioxide 30 Anion Gap 17 BUN 16 Creatinine 0.9 Est GFR ( Amer) > 60 Est GFR (Non-Af Amer) > 60 Random Glucose 85 Fasting Glucose Calcium 10.6 H Total Bilirubin 0.8 AST 32 ALT 39 Alkaline Phosphatase 81 Total Protein 8.4 H Albumin 4.9 H Globulin 3.5 Albumin/Globulin Ratio 1.4 Triglycerides Cholesterol LDL Cholesterol Direct HDL Cholesterol TSH 3rd Generation Urine Color Urine Appearance Urine pH Ur Specific [place] Urine Protein Urine Glucose (UA) Urine Ketones Urine Blood Urine Nitrate Urine Bilirubin Urine Urobilinogen Ur Leukocyte Esterase Salicylates < 1 L Urine Opiates Screen Urine Methadone Screen Acetaminophen < 10.0 L Ur Barbiturates Screen Ur Phencyclidine Scrn Ur Amphetamines Screen U Benzodiazepines Scrn U Oth Cocaine Metabols U Cannabinoids Screen Alcohol, Quantitative RPR 12/24/17 12/24/17 12/24/17 18:17 19:54 19:54 WBC RBC Hgb Hct MCV MCH MCHC RDW Plt Count MPV Gran % Lymph % (Auto) Garden % (Auto) Eos % (Auto) Baso % (Auto) Gran # Lymph # (Auto) Garden # (Auto) Eos # (Auto) Baso # (Auto) Sodium Potassium Chloride Carbon Dioxide Anion Gap BUN Creatinine Est GFR ( Amer) Est GFR (Non-Af Amer) Random Glucose Fasting Glucose Calcium Total Bilirubin AST ALT Alkaline Phosphatase Total Protein Albumin Globulin Albumin/Globulin Ratio Triglycerides Cholesterol LDL Cholesterol Direct HDL Cholesterol TSH 3rd Generation Urine Color Light yellow Urine Appearance Clear Urine pH 6.0 Ur Specific [place] 1.010 Urine Protein Negative Urine Glucose (UA) Negative Urine Ketones Negative Urine Blood Negative Urine Nitrate Negative Urine Bilirubin Negative Urine Urobilinogen 0.2 Ur Leukocyte Esterase Negative Salicylates Urine Opiates Screen Negative Urine Methadone Screen Negative Acetaminophen Ur Barbiturates Screen Negative Ur Phencyclidine Scrn Negative Ur Amphetamines Screen Negative U Benzodiazepines Scrn Negative U Oth Cocaine Metabols Negative U Cannabinoids Screen Negative Alcohol, Quantitative < 10 RPR 12/25/17 12/25/17 12/25/17 07:30 07:30 07:30 WBC RBC Hgb Hct MCV MCH MCHC RDW Plt Count MPV Gran % Lymph % (Auto) Garden % (Auto) Eos % (Auto) Baso % (Auto) Gran # Lymph # (Auto) Garden # (Auto) Eos # (Auto) Baso # (Auto) Sodium Potassium Chloride Carbon Dioxide Anion Gap BUN Creatinine Est GFR ( Amer) Est GFR (Non-Af Amer) Random Glucose Fasting Glucose 94 Calcium Total Bilirubin AST ALT Alkaline Phosphatase Total Protein Albumin Globulin Albumin/Globulin Ratio Triglycerides 93 Cholesterol 147 LDL Cholesterol Direct 73 HDL Cholesterol 51 TSH 3rd Generation 1.99 Urine Color Urine Appearance Urine pH Ur Specific [place] Urine Protein Urine Glucose (UA) Urine Ketones Urine Blood Urine Nitrate Urine Bilirubin Urine Urobilinogen Ur Leukocyte Esterase Salicylates Urine Opiates Screen Urine Methadone Screen Acetaminophen Ur Barbiturates Screen Ur Phencyclidine Scrn Ur Amphetamines Screen U Benzodiazepines Scrn U Oth Cocaine Metabols U Cannabinoids Screen Alcohol, Quantitative RPR Nonreactive 12/26/17 09:50 WBC RBC Hgb Hct MCV MCH MCHC RDW Plt Count MPV Gran % Lymph % (Auto) Garden % (Auto) Eos % (Auto) Baso % (Auto) Gran # Lymph # (Auto) Garden # (Auto) Eos # (Auto) Baso # (Auto) Sodium Potassium Chloride Carbon Dioxide Anion Gap BUN Creatinine Est GFR ( Amer) Est GFR (Non-Af Amer) Random Glucose Fasting Glucose Calcium 10.3 Total Bilirubin AST ALT Alkaline Phosphatase Total Protein Albumin Globulin Albumin/Globulin Ratio Triglycerides Cholesterol LDL Cholesterol Direct HDL Cholesterol TSH 3rd Generation Urine Color Urine Appearance Urine pH Ur Specific [place] Urine Protein Urine Glucose (UA) Urine Ketones Urine Blood Urine Nitrate Urine Bilirubin Urine Urobilinogen Ur Leukocyte Esterase Salicylates Urine Opiates Screen Urine Methadone Screen Acetaminophen Ur Barbiturates Screen Ur Phencyclidine Scrn Ur Amphetamines Screen U Benzodiazepines Scrn U Oth Cocaine Metabols U Cannabinoids Screen Alcohol, Quantitative RPR DSM 5 Symptoms Update: Range problematic, paranoid though not agitated presently. Insight marginal. Medication Change: Yes (Have started less sedating Geodon) Medical Record Reviewed: Yes Consults ordered or reviewed: Consult of past several days reviewed Mental Status Examination - Cognitive Function Orientation: Person, Place, Situation, Time Memory: Intact Attention: WNL Concentration: Poor Association: WNL Fund of Knowledge: WNL Decription of patient's judgement and insights: Impaired. At times is aware he is paranoid, at times is not aware he is paranoid. He is aware of outbursts but can't give a meaningful explanation. - Mood Mood: Neutral, Other ( "feeling better and thoughts are clearing") - Affect Affect: Flat, Other (Labile and oddly related) - Speech Speech: Appropriate - Formal Thought Process Formal Thought Process: Hallucinations (denies), Delusions (none elicited at this time), Paranoia (guarded during interview, minimizing), Loosening of associations, Circumstantial Psychotic Thoughts and Behaviors: has paranoid thoughts - Suicidal Ideation Suicidal Ideation: No - Homicidal Ideation Homicidal Ideation: No Goal/Treatment Plan - Goal/Treatment Plan Need for Continued Stay: Remain at risks for inpatient hospitalization, Severe depression anxiety, Severe functional impairment Progress Toward Problem(s) and Goals/Treatment Plan: Not yet stable. The remainder in. Of medication adjustment and neurologic evaluation
[2017-12-31] MEDS ORDERED: Magnesium Hydroxide Susp 30 ml UD PO PRN (04:01)
[2017-12-31] MEDS ORDERED: Alum-Mag Hydrox-Simethicone Susp (30 mL) PO PRN (04:01)
--- NOTE | 2018-01-01 08:29 | PN ---
DATE: 12/31/2017 SUBJECTIVE: Patient is a 22-year-old single male with what appears to be either a schizoaffective disorder or bipolar disorder with much paranoia and agitation. Today, the patient appears to be considerably calmer, he is alert, oriented, anxious to go home, speaks in an appropriately voiced modulated pattern, he does not speak of overt paranoid ideation nor does he express any auditory or visual hallucinations nor does he appeared to be internally preoccupied. He appears to be cognitively intact to this juncture. Nursing, however, is expressing concern that he is still isolative and quiet and his speech is monosyllabic. My sense is that the patient's affect appears to be brighter and with a broader range of affect than yesterday where he appeared to be quite sedate; presumably from the Seroquel that he was getting. Today is his first full day off of Seroquel and on Geodon, which he does appear to be responding to. Nursing notes some paranoia but lesser than the day previously. His appetite is good. He is denying suicidal, homicidal ideation. His thinking appears more organized. I will maintain him psychotropically on Geodon 60 mg b.i.d. for now. His improvement from yesterday is gratifying, although he still is concerned to be potentially labile and needs monitoring still. Blood pressure elevated at 135/92, pulse elevated at 95, temperature 98.2, respiratory rate 20. Gary Chapman MD/ PhD
--- NOTE | 2018-01-01 14:28 | PN ---
DATE: SUBJECTIVE: A 22-year-old male on the Psychiatry Unit. Nursing staff feels that the patient's behavior is slightly better than the day before. PHYSICAL EXAMINATION: VITAL SIGNS: His temperature is 98, his blood pressure is 125/89, his pulse is 82 and regular, respiratory rate is 20. He states that he is feeling a bit better this morning. States that he slept during the night. LUNGS: Clear. HEART: S1 and S2 rhythm. ABDOMEN: Soft with positive bowel sounds. EXTREMITIES: Show no evidence of edema. MEDICATIONS: He is currently receiving Ambien at bedtime 5 mg. He is on Ativan 2 mg IM every 4 hours p.r.n. for agitation and p.o. every 6 hours p.r.n. He is on Cogentin 0.5 mg every 6 hours p.r.n. He is on Geodon 60 mg b.i.d., Haldol 2 mg every 6 hours p.r.n. and 5 mg IM every 4 hours p.r.n. Maalox 30 mL p.o. daily p.r.n. Milk of magnesia 30 mL p.o. daily p.r.n., and Tylenol 2 tablets every 4 hours p.r.n. for moderate pain. ASSESSMENT AND PLAN: He has a past medical history of medulloblastoma with ventricular shunt. The patient's CT of his head have not shown any new changes. He has been seen by Neurology. He continued to be followed by a psychiatrist and monitored by the staff. Maryan Pearson MD
--- NOTE | 2018-01-01 17:45 | PCM.PYCHPN ---
Psychiatric Progress Note - Psychiatric Progress Note Patient seen today, length of contact: 25 min Patient Chief Complaint: Depression, anxiety, disorganized and bizarre thinking and behavior Problems Identified/Issues Discussed: Patient has become increasingly disorganized. Last night, the first night of his admission, he had been wandering, and still wanders into other patient's rooms and taking their properties. Has poor insight. Patient had the last week been evaluated at [facility] emergency room for chest pain and shortness of breath. The was deemed psychiatrically able to leave the hospital but a neurologic workup as far as can be determined was not initiated at that time. Patient has a prior history of brain tumor and shunt placement On December 30 met with staff mother and the patient. Had also will review case with nursing, social work, and that Dr. Pearson. Thus apprised .. In sum patient presently lethargic and looked drugged. Still has paranoid ideation and poor insight. Reviewed some of his bizarre and problematic behaviors over the past weekend and calling a paranoid agitated outbursts, locking himself in the nurse's station, hitting his head required a CAT scan ( negative). Mother noted to be insightful, concerned and a potential ally Period where I have opted to start patient on less sedating antipsychoticGeodon oand we will stop the more sedating Seroquel. Have counseled patient that he, unlike his perception, is not ready for discharge. f events over past weekend Medical Problems: As noted above Diagnostic Results: Laboratory Results - last 72 hr 12/24/17 12/24/17 12/24/17 18:17 18:17 18:17 WBC 10.8 RBC 5.67 Hgb 17.4 Hct 49.5 MCV 87.3 MCH 30.7 MCHC 35.2 RDW 12.1 Plt Count 172 MPV 11.4 H Gran % 67.7 Lymph % (Auto) 24.0 [place] % (Auto) 6.8 H Eos % (Auto) 1.1 L Baso % (Auto) 0.4 Gran # 7.32 H Lymph # (Auto) 2.6 [place] # (Auto) 0.7 H Eos # (Auto) 0.1 Baso # (Auto) 0.04 Sodium 144 Potassium 3.6 Chloride 100 Carbon Dioxide 30 Anion Gap 17 BUN 16 Creatinine 0.9 Est GFR ( Amer) > 60 Est GFR (Non-Af Amer) > 60 Random Glucose 85 Fasting Glucose Calcium 10.6 H Total Bilirubin 0.8 AST 32 ALT 39 Alkaline Phosphatase 81 Total Protein 8.4 H Albumin 4.9 H Globulin 3.5 Albumin/Globulin Ratio 1.4 Triglycerides Cholesterol LDL Cholesterol Direct HDL Cholesterol TSH 3rd Generation Urine Color Urine Appearance Urine pH Ur Specific [place] Urine Protein Urine Glucose (UA) Urine Ketones Urine Blood Urine Nitrate Urine Bilirubin Urine Urobilinogen Ur Leukocyte Esterase Salicylates < 1 L Urine Opiates Screen Urine Methadone Screen Acetaminophen < 10.0 L Ur Barbiturates Screen Ur Phencyclidine Scrn Ur Amphetamines Screen U Benzodiazepines Scrn U Oth Cocaine Metabols U Cannabinoids Screen Alcohol, Quantitative RPR 12/24/17 12/24/17 12/24/17 18:17 19:54 19:54 WBC RBC Hgb Hct MCV MCH MCHC RDW Plt Count MPV Gran % Lymph % (Auto) [place] % (Auto) Eos % (Auto) Baso % (Auto) Gran # Lymph # (Auto) [place] # (Auto) Eos # (Auto) Baso # (Auto) Sodium Potassium Chloride Carbon Dioxide Anion Gap BUN Creatinine Est GFR ( Amer) Est GFR (Non-Af Amer) Random Glucose Fasting Glucose Calcium Total Bilirubin AST ALT Alkaline Phosphatase Total Protein Albumin Globulin Albumin/Globulin Ratio Triglycerides Cholesterol LDL Cholesterol Direct HDL Cholesterol TSH 3rd Generation Urine Color Light yellow Urine Appearance Clear Urine pH 6.0 Ur Specific [place] 1.010 Urine Protein Negative Urine Glucose (UA) Negative Urine Ketones Negative Urine Blood Negative Urine Nitrate Negative Urine Bilirubin Negative Urine Urobilinogen 0.2 Ur Leukocyte Esterase Negative Salicylates Urine Opiates Screen Negative Urine Methadone Screen Negative Acetaminophen Ur Barbiturates Screen Negative Ur Phencyclidine Scrn Negative Ur Amphetamines Screen Negative U Benzodiazepines Scrn Negative U Oth Cocaine Metabols Negative U Cannabinoids Screen Negative Alcohol, Quantitative < 10 RPR 12/25/17 12/25/17 12/25/17 07:30 07:30 07:30 WBC RBC Hgb Hct MCV MCH MCHC RDW Plt Count MPV Gran % Lymph % (Auto) [place] % (Auto) Eos % (Auto) Baso % (Auto) Gran # Lymph # (Auto) [place] # (Auto) Eos # (Auto) Baso # (Auto) Sodium Potassium Chloride Carbon Dioxide Anion Gap BUN Creatinine Est GFR ( Amer) Est GFR (Non-Af Amer) Random Glucose Fasting Glucose 94 Calcium Total Bilirubin AST ALT Alkaline Phosphatase Total Protein Albumin Globulin Albumin/Globulin Ratio Triglycerides 93 Cholesterol 147 LDL Cholesterol Direct 73 HDL Cholesterol 51 TSH 3rd Generation 1.99 Urine Color Urine Appearance Urine pH Ur Specific [place] Urine Protein Urine Glucose (UA) Urine Ketones Urine Blood Urine Nitrate Urine Bilirubin Urine Urobilinogen Ur Leukocyte Esterase Salicylates Urine Opiates Screen Urine Methadone Screen Acetaminophen Ur Barbiturates Screen Ur Phencyclidine Scrn Ur Amphetamines Screen U Benzodiazepines Scrn U Oth Cocaine Metabols U Cannabinoids Screen Alcohol, Quantitative RPR Nonreactive 12/26/17 09:50 WBC RBC Hgb Hct MCV MCH MCHC RDW Plt Count MPV Gran % Lymph % (Auto) [place] % (Auto) Eos % (Auto) Baso % (Auto) Gran # Lymph # (Auto) [place] # (Auto) Eos # (Auto) Baso # (Auto) Sodium Potassium Chloride Carbon Dioxide Anion Gap BUN Creatinine Est GFR ( Amer) Est GFR (Non-Af Amer) Random Glucose Fasting Glucose Calcium 10.3 Total Bilirubin AST ALT Alkaline Phosphatase Total Protein Albumin Globulin Albumin/Globulin Ratio Triglycerides Cholesterol LDL Cholesterol Direct HDL Cholesterol TSH 3rd Generation Urine Color Urine Appearance Urine pH Ur Specific [place] Urine Protein Urine Glucose (UA) Urine Ketones Urine Blood Urine Nitrate Urine Bilirubin Urine Urobilinogen Ur Leukocyte Esterase Salicylates Urine Opiates Screen Urine Methadone Screen Acetaminophen Ur Barbiturates Screen Ur Phencyclidine Scrn Ur Amphetamines Screen U Benzodiazepines Scrn U Oth Cocaine Metabols U Cannabinoids Screen Alcohol, Quantitative RPR DSM 5 Symptoms Update: Patient, then yesterday but more subdued. He makes reasonable eye contact. Speech is soft. Complains of headachefrontallythat started this morning. Medication Change: Yes (Have started less sedating Geodon) Medical Record Reviewed: Yes Mental Status Examination - Cognitive Function Orientation: Person, Place, Situation, Time Memory: Intact Attention: WNL Concentration: WNL Association: WNL Fund of Knowledge: WNL Decription of patient's judgement and insights: Impaired. At times is aware he is paranoid, at times is not aware he is paranoid. He is aware of outbursts but can't give a meaningful explanation. - Mood Mood: Neutral, Other ( "feeling better and thoughts are clearing") - Affect Affect: Flat, Other (Labile and oddly related) - Speech Speech: Appropriate - Formal Thought Process Formal Thought Process: Hallucinations (denies), Delusions (none elicited at this time), Paranoia (guarded during interview, minimizing), Loosening of associations, Circumstantial Psychotic Thoughts and Behaviors: has paranoid thoughts - Suicidal Ideation Suicidal Ideation: No - Homicidal Ideation Homicidal Ideation: No Goal/Treatment Plan - Goal/Treatment Plan Need for Continued Stay: Remain at risks for inpatient hospitalization, Severe depression anxiety, Severe functional impairment Progress Toward Problem(s) and Goals/Treatment Plan: Not yet stable. The remainder in. Of medication adjustment and neurologic evaluation Patient complaining of frontal headache starting this morning. Will get neurology follow-up consultation. Case discussed with mother. Patient while not agitated and not overtly psychotic does appear to be subdued. Denies any psychotic ideation or any depression but I'm not so certain this reflects his actual state of mind. We'll continue to monitor. Goal would be to see if the patient can maintain to work 3 days of stability psychiatrically. Patient to go to a day program upon discharge ([facility] in [place])
--- NOTE | 2018-01-02 13:18 | PN ---
E: A 22-year-old male on the Psychiatry Unit. Nursing staff relates that the patient's behavior is slightly better. He offers no specific complaints this morning. States that he slept okay last night. OBJECTIVE: VITAL SIGNS: His temperature is 97, his blood pressure is 118/66, his pulse is 86, his respiratory rate is 20. HEART: S1 and S2, rhythm. LUNGS: Clear. ABDOMEN: Benign. EXTREMITIES: No evidence of edema. 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 He is on Ambien, Ativan, Cogentin, Geodon, Haldol, milk of magnesia, Maalox and Tylenol. We will continue to monitor the patient along with Psychiatry. Maryan Pearson MD
--- NOTE | 2018-01-02 15:21 | PN ---
DATE: 01/01/2018 I have further reviewed the patient's situation with nursing staff. There is growing concern about the patient's present mental state. He is considered still to be paranoid, having delusions of being pursued and thus, the patient is still actively psychotic. I think that the risks of discharging the patient are just too great at this juncture despite the insurance company's concern both about the patient's well being and their own. The patient has manifested an overt paranoid psychotic ideation over the past several days; this having abated with regard to its overt manifestations over the past two days, but the patient still is considered to be psychotic in a more guarded, less overt state, but still considered to be at risk. I thus respectfully request that his health insurance carrier overcome their inclinations and allow continued inpatient observation and treatment. Gary Chapman MD/ PhD
--- NOTE | 2018-01-02 15:39 | PN ---
DATE: 01/02/2018 IDENTIFYING INFORMATION: The patient is a 22-year-old single male with what appears to be either a bipolar disorder or schizoaffective disorder with a prior history of a brain tumor and removal. He has exhibited, agitated and bizarre behavior during the course of his hospital stay which includes mood lability, extreme paranoia with associated agitation, and with the patient earlier having taking properties from them, and over the weekend having a jump into the nursing station and locking himself in. He had been also sluggish and sedate while being treated with Seroquel which was in response to this adversity switched to Geodon with apparent good results. The patient is not agitated, and is alert, oriented to three spheres. His affect is flat, his headache of yesterday appears to be gone, he expresses tearfulness now (without actually crying) because of the loss time he has spent here and its impairment in his educational pursuits. My sense is that the patient is still emotionally labile, is not revealing the full extent of his emotional distress that includes emotional lability of possible paranoia. However, we apparently are not being given the option of monitoring this patient with the degree that he should be monitored giving the severity and course of his illness. I will present to his mother who is a clinical community mental health social worker. The options presented; my sense that the patient should be given an opportunity for further observation in an inpatient setting to deal with possible emergent bizarre behavior or lability or agitated paranoia, or send him home as his health insurance carrier (____ for his care) is expressing wishes. In the meantime, the patient is being maintained on Geodon 40 mg b.i.d. In any event, the patient is to go for outpatient care at [facility]; in [facility] in [place] upon his discharge. Gary Chapman MD/ PhD
[2018-01-03 09:46] VITALS: BP 126/88; PULSE 73; TEMP 98.1
--- NOTE | 2018-01-03 14:47 | PCM.PYCHPN ---
Psychiatric Progress Note - Psychiatric Progress Note Patient seen today, length of contact: 25 min Patient Chief Complaint: Depression, anxiety, disorganized and bizarre thinking and behavior Problems Identified/Issues Discussed: Patient has become increasingly disorganized. Last night, the first night of his admission, he had been wandering, and still wanders into other patient's rooms and taking their properties. Has poor insight. Patient had the last week been evaluated at [facility] emergency room for chest pain and shortness of breath. The was deemed psychiatrically able to leave the hospital but a neurologic workup as far as can be determined was not initiated at that time. Patient has a prior history of brain tumor and shunt placement On December 30 met with staff mother and the patient. Had also will review case with nursing, social work, and that Dr. Pearson. Thus apprised .. In sum patient presently lethargic and looked drugged. Still has paranoid ideation and poor insight. Reviewed some of his bizarre and problematic behaviors over the past weekend and calling a paranoid agitated outbursts, locking himself in the nurse's station, hitting his head required a CAT scan ( negative). Mother noted to be insightful, concerned and a potential ally Period where I have opted to start patient on less sedating antipsychoticGeodon oand we will stop the more sedating Seroquel. Have counseled patient that he, unlike his perception, is not ready for discharge. f events over past weekend Medical Problems: As noted above Diagnostic Results: Laboratory Results - last 72 hr 12/24/17 12/24/17 12/24/17 18:17 18:17 18:17 WBC 10.8 RBC 5.67 Hgb 17.4 Hct 49.5 MCV 87.3 MCH 30.7 MCHC 35.2 RDW 12.1 Plt Count 172 MPV 11.4 H Gran % 67.7 Lymph % (Auto) 24.0 [place] % (Auto) 6.8 H Eos % (Auto) 1.1 L Baso % (Auto) 0.4 Gran # 7.32 H Lymph # (Auto) 2.6 [place] # (Auto) 0.7 H Eos # (Auto) 0.1 Baso # (Auto) 0.04 Sodium 144 Potassium 3.6 Chloride 100 Carbon Dioxide 30 Anion Gap 17 BUN 16 Creatinine 0.9 Est GFR ( Amer) > 60 Est GFR (Non-Af Amer) > 60 Random Glucose 85 Fasting Glucose Calcium 10.6 H Total Bilirubin 0.8 AST 32 ALT 39 Alkaline Phosphatase 81 Total Protein 8.4 H Albumin 4.9 H Globulin 3.5 Albumin/Globulin Ratio 1.4 Triglycerides Cholesterol LDL Cholesterol Direct HDL Cholesterol TSH 3rd Generation Urine Color Urine Appearance Urine pH Ur Specific [place] Urine Protein Urine Glucose (UA) Urine Ketones Urine Blood Urine Nitrate Urine Bilirubin Urine Urobilinogen Ur Leukocyte Esterase Salicylates < 1 L Urine Opiates Screen Urine Methadone Screen Acetaminophen < 10.0 L Ur Barbiturates Screen Ur Phencyclidine Scrn Ur Amphetamines Screen U Benzodiazepines Scrn U Oth Cocaine Metabols U Cannabinoids Screen Alcohol, Quantitative RPR 12/24/17 12/24/17 12/24/17 18:17 19:54 19:54 WBC RBC Hgb Hct MCV MCH MCHC RDW Plt Count MPV Gran % Lymph % (Auto) [place] % (Auto) Eos % (Auto) Baso % (Auto) Gran # Lymph # (Auto) [place] # (Auto) Eos # (Auto) Baso # (Auto) Sodium Potassium Chloride Carbon Dioxide Anion Gap BUN Creatinine Est GFR ( Amer) Est GFR (Non-Af Amer) Random Glucose Fasting Glucose Calcium Total Bilirubin AST ALT Alkaline Phosphatase Total Protein Albumin Globulin Albumin/Globulin Ratio Triglycerides Cholesterol LDL Cholesterol Direct HDL Cholesterol TSH 3rd Generation Urine Color Light yellow Urine Appearance Clear Urine pH 6.0 Ur Specific [place] 1.010 Urine Protein Negative Urine Glucose (UA) Negative Urine Ketones Negative Urine Blood Negative Urine Nitrate Negative Urine Bilirubin Negative Urine Urobilinogen 0.2 Ur Leukocyte Esterase Negative Salicylates Urine Opiates Screen Negative Urine Methadone Screen Negative Acetaminophen Ur Barbiturates Screen Negative Ur Phencyclidine Scrn Negative Ur Amphetamines Screen Negative U Benzodiazepines Scrn Negative U Oth Cocaine Metabols Negative U Cannabinoids Screen Negative Alcohol, Quantitative < 10 RPR 12/25/17 12/25/17 12/25/17 07:30 07:30 07:30 WBC RBC Hgb Hct MCV MCH MCHC RDW Plt Count MPV Gran % Lymph % (Auto) [place] % (Auto) Eos % (Auto) Baso % (Auto) Gran # Lymph # (Auto) [place] # (Auto) Eos # (Auto) Baso # (Auto) Sodium Potassium Chloride Carbon Dioxide Anion Gap BUN Creatinine Est GFR ( Amer) Est GFR (Non-Af Amer) Random Glucose Fasting Glucose 94 Calcium Total Bilirubin AST ALT Alkaline Phosphatase Total Protein Albumin Globulin Albumin/Globulin Ratio Triglycerides 93 Cholesterol 147 LDL Cholesterol Direct 73 HDL Cholesterol 51 TSH 3rd Generation 1.99 Urine Color Urine Appearance Urine pH Ur Specific [place] Urine Protein Urine Glucose (UA) Urine Ketones Urine Blood Urine Nitrate Urine Bilirubin Urine Urobilinogen Ur Leukocyte Esterase Salicylates Urine Opiates Screen Urine Methadone Screen Acetaminophen Ur Barbiturates Screen Ur Phencyclidine Scrn Ur Amphetamines Screen U Benzodiazepines Scrn U Oth Cocaine Metabols U Cannabinoids Screen Alcohol, Quantitative RPR Nonreactive 12/26/17 09:50 WBC RBC Hgb Hct MCV MCH MCHC RDW Plt Count MPV Gran % Lymph % (Auto) [place] % (Auto) Eos % (Auto) Baso % (Auto) Gran # Lymph # (Auto) [place] # (Auto) Eos # (Auto) Baso # (Auto) Sodium Potassium Chloride Carbon Dioxide Anion Gap BUN Creatinine Est GFR ( Amer) Est GFR (Non-Af Amer) Random Glucose Fasting Glucose Calcium 10.3 Total Bilirubin AST ALT Alkaline Phosphatase Total Protein Albumin Globulin Albumin/Globulin Ratio Triglycerides Cholesterol LDL Cholesterol Direct HDL Cholesterol TSH 3rd Generation Urine Color Urine Appearance Urine pH Ur Specific [place] Urine Protein Urine Glucose (UA) Urine Ketones Urine Blood Urine Nitrate Urine Bilirubin Urine Urobilinogen Ur Leukocyte Esterase Salicylates Urine Opiates Screen Urine Methadone Screen Acetaminophen Ur Barbiturates Screen Ur Phencyclidine Scrn Ur Amphetamines Screen U Benzodiazepines Scrn U Oth Cocaine Metabols U Cannabinoids Screen Alcohol, Quantitative RPR DSM 5 Symptoms Update: Case reviewed with nursing and with social work and with mother. Patient appears to be significantly calmer, less agitated, more focused and more convincing in his reassurance that he is not having disturbing or paranoid thoughts he still is however considered to be at some risk. The patient up until his recent decompensation was considered to be a high functioning college student, with over 50 credits at [employer] in a somewhat unusual majorfamily planning or family relationships. His grade point average is over a 3 (and thus above AB level) I have reviewed with mother and with nursing and with patient varying options to respond to varying scenarios as they might fold upon the patient's pending discharge. On the whole the patient seems to be much improved from the fulminant decompensation he has recently undergone during which he became paranoid, agitated and bizarre in his behavior Medication Change: Yes (Have started less sedating Geodon) Medical Record Reviewed: Yes Mental Status Examination - Cognitive Function Orientation: Person, Place, Situation, Time Memory: Intact Attention: WNL Concentration: WNL Association: WNL Fund of Knowledge: [facility] Decription of patient's judgement and insights: Impaired. At times is aware he is paranoid, at times is not aware he is paranoid. He is aware of outbursts but can't give a meaningful explanation. On January 03 it was deemed that his insight and judgment have improved such that there is some level of comfort (not completely so) that he is ready for discharge. - Mood Mood: Neutral, Other ( "feeling better and thoughts are clearing") - Affect Affect: Blunted, Other (Labile and oddly related) - Speech Speech: Appropriate - Formal Thought Process Formal Thought Process: Hallucinations (denies), Paranoia (guarded during interview, minimizing), Loosening of associations, Circumstantial Psychotic Thoughts and Behaviors: has paranoid thoughts On January 03 she is deemed not to be overtly psychotic or having overt paranoid thoughts; at least not to the degree that he is willing to share these more willing to act upon them. - Suicidal Ideation Suicidal Ideation: No - Homicidal Ideation Homicidal Ideation: No Goal/Treatment Plan - Goal/Treatment Plan Need for Continued Stay: Remain at risks for inpatient hospitalization, Severe depression anxiety, Severe functional impairment Progress Toward Problem(s) and Goals/Treatment Plan: Not yet stable. The remainder in. Of medication adjustment and neurologic evaluation Patient complaining of frontal headache starting this morning. Will get neurology follow-up consultation. Case discussed with mother. Patient while not agitated and not overtly psychotic does appear to be subdued. Denies any psychotic ideation or any depression but I'm not so certain this reflects his actual state of mind. We'll continue to monitor. Goal would be to see if the patient can maintain to work 3 days of stability psychiatrically. Patient to go to a day program upon discharge ([facility] in [place]) On January 03 his chart was reviewed, case discussed with nursing, social work, and patient's mother. Given the exigencies of his healthcare carrier with desire to facilitate the patient's transfer is soon as possible, we are with some measure of comfort, but also with some measure of discomfort, discharging this patient today. He had prior to his decompensation than a high functioning individual, college student, with career goals, and considered to be intelligent. Social work is presently working on completing application for the patient to attend a day program at the [facility] The patient will be maintained on his present medication regimen I will see the patient in my office in one and a half weeks. Estimated Date of D/C: 01/03/18
== END 2018-01-03 17:13 | disposition home or self-care (01) | DRG 885 ==
LOC: ED 17:27 → ERH 20:38 → PSYC 21:27
PROVIDERS: ADMIT Psychiatry & Neurology Addiction Medicine; ATTEND Psychiatry & Neurology Addiction Medicine
DX: F31.9 Bipolar disorder, unspecified (principal); F41.9 Anxiety disorder, unspecified; F22 Delusional disorders; Z85.841 Personal history of malignant neoplasm of brain; Z92.21 Personal history of antineoplastic chemotherapy; Z98.2 Presence of cerebrospinal fluid drainage device; Z91.14 Patient's other noncompliance with medication regimen